=== PATIENT | male | born 2000 | race Caucasian/White ===

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

== ENCOUNTER 2018-12-29 17:52 | Emergency (ER) | payer OTHER, BC ==
[2018-12-29] MEDS ORDERED: HYDROmorphone 1 MG/ML Syringe IVPUSH ONE ×2 (17:58→19:30)
[2018-12-29] MEDS ORDERED: Metoclopramide 10 MG/2 ML SDV IVPUSH ONE (17:58)
[2018-12-29] MEDS ORDERED: Sodium Chloride 0.9% 10 ML Syringe FLUSH PRN (18:00)
[2018-12-29] MEDS ORDERED: Sodium Chloride 0.9% 1,000 ML IV SCH (18:00)
[2018-12-29] MEDS ORDERED: Iohexol 647 MG/ML 100 ML Bottle IVPUSH ONE (18:00)
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
--- NOTE | 2018-12-29 18:57 | CT ---
CT chest Technique: Multiple axial sections were obtained from above the lung apices inferiorly through the lung bases. Intravenous contrast was utilized. Comparison: No prior chest imaging. Findings: Soft tissue density is noted within the superior mediastinum which is felt compatible with residual thymic tissue as a normal finding. No mediastinal mass or adenopathy or mediastinal hematoma is seen. No pericardial fluid is seen. Aorta shows normal enhancement. Lungs are clear. No pulmonary contusion is seen. No pneumothorax is seen. No pleural effusions are noted. Minimal atelectasis is incidentally noted within both lung bases. No rib fracture is visualized. 2 mild compression fractures are seen within the vertebral bodies of T4 and T5 levels which will be described further on CT thoracic spine exam. Impression: 1. 2 mild compression fractures within T4 and T5 which will be described on thoracic spine study. 2. Other incidental findings. No other acute abnormality is seen on CT study of the chest. Diagnostic code #3 CT abdomen and pelvis Technique: Multiple axial sections were obtained from above the dome of the diaphragm inferiorly through the pubic symphysis. Intravenous contrast was utilized. No oral contrast has been given. Delayed images were obtained through the bladder. Findings: Liver shows no focal parenchymal abnormality. Spleen appears within normal limits. Adrenal glands show no nodule. Pancreas appears within normal limits. Gallbladder contains no calcified gallstones. Aorta shows no aneurysm. Kidneys show symmetric contrast enhancement. 2 cysts are noted within the right kidney. Largest cyst within the right kidney measures 1.9 cm and smaller cyst measures 1.0 cm. No retroperitoneal adenopathy or mesenteric abnormalities are seen. No pelvic mass or adenopathy is seen. Delayed images shows contrast within the distal ureters and within the bladder. No free fluid or inflammatory change is seen within the abdomen or pelvis. Bone window settings shows no discrete pelvic or hip fracture. Impression: 1. Incidental findings. Nothing acute is appreciated on CT study of the abdomen and pelvis. Diagnostic code #2
--- NOTE | 2018-12-29 19:04 | CT ---
CT cervical spine Technique: Multiple axial sections were obtained from above C1 inferiorly to the mid to bottom T2 level. Reconstructed sagittal and coronal images were reviewed. Findings: Mild subcutaneous soft tissue swelling noted within the posterior upper back. Vertebral body heights and disc spaces are maintained. Vertebral bodies and posterior arches are intact. No fracture is seen. No bony central or bony neural foraminal stenosis is seen. Craniovertebral junction structures are within normal limits. Impression: 1. Subcutaneous soft tissue swelling within the posterior upper back. 2. Nothing acute is otherwise appreciated on CT study of the cervical spine. Diagnostic code #2
--- NOTE | 2018-12-29 19:04 | CT ---
Head CT Technique: Multiple axial sections through the brain were obtained. Intravenous contrast was not utilized. Comparison: No prior intracranial imaging. Findings: Ventricles along with basal cisterns and sulci over the convexities are within normal limits for the patient's age. No abnormal parenchymal densities are seen. No evidence of intracranial hemorrhage. No midline shift or mass effect is seen. Bone window settings were reviewed which shows minimal areas of mucosal thickening within the ethmoid sinuses which is incidental. No acute calvarial abnormality is appreciated. Impression: 1. Nothing acute is seen on noncontrast head CT exam. Diagnostic code #1
--- NOTE | 2018-12-29 19:08 | CT ---
CT lumbar spine Technique: Multiple axial sections through the lumbar spine were obtained. Reconstructed coronal and sagittal images were obtained. Findings: Vertebral body heights and disc spaces are maintained. No traumatic disc herniation is seen. No fracture is identified within the lumbar spine. No abnormal subluxation is seen. No central canal stenosis or neural foraminal stenosis is seen. Impression: 1. Nothing acute is appreciated on CT study of the lumbar spine. Diagnostic code #1
--- NOTE | 2018-12-29 19:10 | CT ---
CT thoracic spine Technique: Multiple axial sections through the thoracic spine were obtained. Reconstructed coronal and sagittal images were obtained. Findings: Mild compression fracture is noted within T4. This involves mostly the superior vertebral margin. This appears to be acute. Posterior vertebral line appears intact. No fracture extension into the pedicles or posterior arch. Soft tissue swelling is noted within the paravertebral soft tissues. There is loss of height by about 25%. Compression fracture is also noted within the vertebral body of T5. Minimal loss of height about 10% is seen. Very minimal bowing of the posterior vertebral line is seen. No retrolisthesis fragments are noted. Fracture does not extend into the pedicles or posterior arch. Mild soft tissue swelling is seen within the paravertebral soft tissues. No additional fracture is seen within the thoracic spine. No abnormal subluxation is seen. No bony central or bony neural foraminal stenosis is seen. No abnormal subluxation is seen. Impression: 1. Mild compression deformities of T4 and T5 which appear acute. No fracture extension into the posterior arch or pedicles. Mild surrounding soft tissue swelling is seen within the paravertebral soft tissues. 2. No additional abnormality is seen on CT study of the thoracic spine. Diagnostic code #3
[2018-12-29] MEDS ORDERED: HYDROmorphone 0.5 MG/0.5 ML Syringe IVPUSH ONE (20:32)
[2018-12-29 21:16] VITALS: BP 104/39
== END 2018-12-29 21:14 | disposition home or self-care (01) ==
LOC: JD.ED 17:52
DX: S06.0X9A Concussion with loss of consciousness of unspecified duration, initial encounter (principal); S22.049A Unspecified fracture of fourth thoracic vertebra, initial encounter for closed fracture; S22.059A Unspecified fracture of T5-T6 vertebra, initial encounter for closed fracture; S30.0XXA Contusion of lower back and pelvis, initial encounter; S20.229A Contusion of unspecified back wall of thorax, initial encounter; Z91.030 Bee allergy status; Z79.899 Other long term (current) drug therapy; V86.06XA Driver of dirt bike or motor/cross bike injured in traffic accident, initial encounter
CPT/HCPCS: 36415; 70450; 71260; 72125; 72128; 72131; 74177; 80053; 82550; 85007; 85027; 85610; 85730; 86850; 86900; 86901; 93005; 96361; 96374; 96375; 96376; 99285; G0390; G0480; J1170; J2765; J7040; Q9967; 93010

== ENCOUNTER 2019-03-30 17:56 | Emergency (ER) | payer OTHER, BC ==
[2019-03-30 18:14] VITALS: BP 141/129; PULSE 70
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
[2019-03-30] MEDS ORDERED: Acetaminophen/oxyCODONE 325-5 MG Tab PO ONE (19:11)
[2019-03-30] MEDS ORDERED: Ondansetron 4 MG Tab.DIS PO ONE (19:11)
--- NOTE | 2019-03-31 09:22 | CR ---
Right wrist: Four views of the right wrist were obtained as well as a navicular view. Distal radial fracture is noted with articular extension. On the lateral view there is mild displacement of a posterior radial fragment by about 2.7 mm. Diffuse soft tissue swelling is noted. No additional bony abnormality is identified. Impression: 1. Distal radial fracture with articular extension. 2. Soft tissue swelling. Diagnostic code #3
--- NOTE | 2019-03-31 09:22 | CR ---
Left forearm: Two views of the left forearm were obtained. Comparison: No previous forearm study is available. No fracture, dislocation or other bony abnormality is seen. Impression: 1. No abnormality is appreciated on two-view left forearm study. Diagnostic code #1
--- NOTE | 2019-03-31 09:22 | CT ---
CT right wrist Technique: Multiple axial sections through the right wrist were obtained. Reconstructed coronal and sagittal images were obtained. Findings: Comminuted distal radial fracture is seen with articular involvement. Articular step-off is seen with impaction. This articular step-off measures about 6-7 mm. Posterior corner fracture is noted showing posterior displacement by about 2.7 mm. Distal ulna is intact. No additional fracture is seen. Soft tissue swelling is present. Impression: 1. Displaced distal radial fracture is seen with articular extension. 2. Soft tissue swelling. Diagnostic code #3 I agree with preliminary report from [facility], finalized on 03/30/19, 9:02 PM Central Time
--- NOTE | 2019-03-31 09:22 | CR ---
Left wrist: Four views of the left wrist were obtained. Comparison: No prior wrist exam. Joint spaces are preserved. No fracture, dislocation or other bony abnormality is seen. Impression: 1. No abnormality is identified on left wrist exam. Diagnostic code #1
--- NOTE | 2019-03-31 09:22 | CR ---
Right forearm: Two views of the right forearm were obtained. Comparison: No previous study. Displaced fracture identified off the corner posterior epiphysis. No additional forearm fracture is seen. Impression: 1. Distal radial fracture with posterior fragment showing displacement. 2. Right forearm study is otherwise unremarkable. Diagnostic code #3
== END 2019-03-30 20:13 | disposition home or self-care (01) ==
LOC: JD.ED 17:56
DX: S52.571A Other intraarticular fracture of lower end of right radius, initial encounter for closed fracture (principal); S63.502A Unspecified sprain of left wrist, initial encounter; S66.912A Strain of unspecified muscle, fascia and tendon at wrist and hand level, left hand, initial encounter; Z91.030 Bee allergy status; Z91.018 Allergy to other foods; Z79.899 Other long term (current) drug therapy; V86.56XA Driver of dirt bike or motor/cross bike injured in nontraffic accident, initial encounter
CPT/HCPCS: 73090; 73110; 73200; 99284; A9270; 99283

== ENCOUNTER 2019-04-03 10:04 | Day surgery (SDC) | payer OTHER, BC ==
[~2019-04-03 10:04] MED LIST: Lactated Ringers 1,000 ML IV SCH; Lidocaine 1%/Sod Bicarbonate in NS 8.4% 1 ML Syringe IDERM PRN; Sodium Chloride 0.9% 10 ML Syringe FLUSH PRN
[2019-04-03] MEDS ORDERED: Midazolam 1 MG/ML 2 ML SDV ONE ×2 (10:46→10:50)
[2019-04-03] MEDS ORDERED: fentaNYL 250 MCG/5 ML SDV ONE ×2 (10:46→10:51)
[2019-04-03] MEDS ORDERED: Propofol 200 MG/20 ML SDV ONE ×2 (10:47→10:50)
[2019-04-03] MEDS ORDERED: Ketorolac 30 MG/ML SDV ONE ×2 (10:50→10:54)
[2019-04-03] MEDS ORDERED: ceFAZolin 1 GM Vial ONE (10:50)
[2019-04-03] MEDS ORDERED: Lidocaine 1% 6 ML ONE (10:50)
[2019-04-03] MEDS ORDERED: Ondansetron 4 MG/2 ML SDV ONE ×2 (10:50→10:54)
[2019-04-03] MEDS ORDERED: Dexamethasone 4 MG/ML 5 ML MDV ONE (10:50)
[2019-04-03] MEDS ORDERED: Bupivacaine 0.25% 10 ML SDV ONE (11:27)
--- NOTE | 2019-04-03 11:40 | PCM.PREANE ---
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, genetic ) - Physical Assessment NPO Status Date: 04/02/19 NPO Status Time: 23:45 Vital Signs: Last Vital Signs Temp 37.3 C 04/03/19 10:20 Pulse 58 L 04/03/19 10:20 Resp 16 04/03/19 10:20 BP 135/90 04/03/19 10:20 Pulse Ox 100 04/03/19 10:20 Height: 1.98 m Weight: 75.296 kg ASA Class: 2 Mental Status: Alert & Oriented x3 Dentition: Reports: Normal Dentition Thyro-Mental Finger Breadths: 3 Mouth Opening Finger Breadths: 5 ROM/Head Extension: Full Lungs: Clear to Auscultation, Normal Respiratory Effort Cardiovascular: Regular Rate, Regular Rhythm - Allergies Allergies/Adverse Reactions: Allergies Allergy/AdvReac Type Severity Reaction Status Date / Time bee pollen Allergy Hives Verified 04/02/19 14:13 cat dander Allergy Hives Verified 04/02/19 14:13 mold Allergy Anaphylactic Verified 04/02/19 14:13 Shock tree nut Allergy Anaphylactic Verified 04/02/19 14:13 Shock - Blood Blood Available: No - Acknowledgements Anesthesia Type Planned: General Anesthesia Pt an Appropriate Candidate for the Planned Anesthesia: Yes Alternatives and Risks of Anesthesia Discussed w Pt/Guardian: Yes Pt/Guardian Understands and Agrees with Anesthesia Plan: Yes PreAnesthesia Questionnaire - Past Health History Medical/Surgical History: Denies Medical/Surgical History Cardiovascular History: Reports: Other (See Below) Other Cardiovascular History: pulmonary hypertension as Respiratory History: Reports: None Gastrointestinal History: Reports: None Genitourinary History: Reports: None 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 Musculoskeletal History: Reports: None Neurological History: Reports: None Psychiatric History: Reports: None Endocrine/Metabolic History: Reports: None Hematologic History: Reports: None Immunologic History: Reports: None Oncologic (Cancer) History: Reports: None Dermatologic History: Reports: None - Past Surgical History Head Surgeries/Procedures: Reports: None HEENT Surgical History: Reports: Oral Surgery Respiratory Surgical History: Reports: None GI Surgical History: Reports: None Female Surgical History: Reports: None Male Surgical History: Reports: None Endocrine Surgical History: Reports: None Neurological Surgical History: Reports: None Musculoskeletal Surgical History: Reports: None Oncologic Surgical History: Reports: None Dermatological Surgical History: Reports: None - SUBSTANCE USE Smoking Status *Q: Current Every Day Smoker Tobacco Use Within Last Twelve Months: Snuff/Dip, Vaping Days Per Week of Alcohol Use: 7 Number of Drinks Per Day: 2 Total Drinks Per Week: 14 Recreational Drug Use History: No - HOME MEDS Home Medications: Home Meds EPINEPHrine [Epipen 2-Gurjit] 0.3 mg IM DAILY PRN #2 unit 01/16/17 [Rx] Acetaminophen/oxyCODONE [Percocet 325-5 MG] 1 tab PO ASDIRECTED PRN 04/03/19 [ History] oxyCODONE HCl/Acetaminophen [Percocet 5-325 mg Tablet] 1 - 2 each PO Q6H PRN # 25 tablet 04/03/19 [Rx] - CURRENT (IN HOUSE) MEDS Current Meds: Current Medications Lactated Ringer's (Ringers, Lactated) 1,000 mls @ 125 mls/hr IV ASDIRECTED GAUTAM Stop: 04/03/19 23:00 Last Admin: 04/03/19 10:45 Dose: 125 mls/hr Lidocaine/Sodium Bicarbonate (Buffered Lidocaine 1% In Ns 8.4%) 0.25 ml IDERM ONETIME PRN PRN Reason: Prior to IV Start Stop: 04/03/19 18:00 Last Admin: 04/03/19 10:45 Dose: 0.25 ml Sodium Chloride (Saline Flush) 10 ml FLUSH ASDIRECTED PRN PRN Reason: Keep Vein Open Stop: 04/03/19 18:00 Discontinued Medications Bupivacaine HCl (Sensorcaine-Mpf 0.25%) Confirm Administered Dose 30 ml .ROUTE .STK-MED ONE Stop: 04/03/19 11:28 Cefazolin Sodium (Ancef) Confirm Administered Dose 2 gm .ROUTE .STK-MED ONE Stop: 04/03/19 10:51 Dexamethasone (Dexamethasone) Confirm Administered Dose 20 mg .ROUTE .STK-MED ONE Stop: 04/03/19 10:51 Fentanyl (Sublimaze) Confirm Administered Dose 250 mcg .ROUTE .STK-MED ONE Stop: 04/03/19 10:47 Fentanyl (Sublimaze) Confirm Administered Dose 250 mcg .ROUTE .STK-MED ONE Stop: 04/03/19 10:52 Lidocaine HCl (Xylocaine-Mpf 1%) Confirm Administered Dose 6 mls @ as directed .ROUTE .ST-MED ONE Stop: 04/03/19 10:51 Ketorolac Tromethamine (Toradol) Confirm Administered Dose 30 mg .ROUTE .STK- MED ONE Stop: 04/03/19 10:51 Ketorolac Tromethamine (Toradol) Confirm Administered Dose 30 mg .ROUTE .ST- MED ONE Stop: 04/03/19 10:55 Midazolam HCl (Versed 1 Mg/Ml) Confirm Administered Dose 2 mg .ROUTE .STK-MED ONE Stop: 04/03/19 10:47 Midazolam HCl (Versed 1 Mg/Ml) Confirm Administered Dose 2 mg .ROUTE .ST-MED ONE Stop: 04/03/19 10:51 Ondansetron HCl (Zofran) Confirm Administered Dose 4 mg .ROUTE .STK-MED ONE Stop: 04/03/19 10:51 Ondansetron HCl (Zofran) Confirm Administered Dose 4 mg .ROUTE .ST-MED ONE Stop: 04/03/19 10:55 Propofol (Diprivan 20 Ml) Confirm Administered Dose 200 mg .ROUTE .STK-MED ONE Stop: 04/03/19 10:48 Propofol (Diprivan 20 Ml) Confirm Administered Dose 200 mg .ROUTE .STK-MED ONE Stop: 04/03/19 10:51
[2019-04-03] MEDS ORDERED: Lidocaine 1% 4 ML ONE (12:00)
[2019-04-03] MEDS ORDERED: Ketamine 500 mg/10 ML MDV ONE (12:23)
[2019-04-03] MEDS ORDERED: Lactated Ringers 1,000 ML ONE (12:45)
[2019-04-03] MEDS ORDERED: Ondansetron 4 MG/2 ML SDV IVPUSH PRN (14:01)
[2019-04-03] MEDS ORDERED: diphenhydrAMINE 50 MG/ML SDV IVPUSH PRN (14:01)
--- NOTE | 2019-04-03 14:01 | PCM.POSTAN ---
POST ANESTHESIA ASSESSMENT - MENTAL STATUS Mental Status: Alert - VITAL SIGNS Vital Signs: Last Vital Signs 1349 148/94, 83, 12 rr, 98.4, 83 Temp 37.3 C 04/03/19 10:20 Pulse 58 L 04/03/19 10:20 Resp 16 04/03/19 10:20 BP 135/90 04/03/19 10:20 Pulse Ox 100 04/03/19 10:20 - RESPIRATORY Respiratory Status: Respiratory Rate WNL, Airway Patent, O2 Saturation Stable - CARDIOVASCULAR CV Status: Pulse Rate WNL, Blood Pressure Stable - GASTROINTESTINAL GI Status: No Symptoms - POST OP HYDRATION Hydration Status: Adequate & Stable
[2019-04-03] MEDS ORDERED: fentaNYL 100 MCG/2 ML SDV ONE (14:02)
[2019-04-03] MEDS ORDERED: HYDROmorphone 0.5 MG/0.5 ML Syringe IVPUSH ONE (14:02)
[2019-04-03] MEDS: fentaNYL 100 MCG/2 ML SDV IVPUSH PRN ×2 (14:05→14:15)
[2019-04-03] MEDS ORDERED: Acetaminophen/oxyCODONE 325-5 MG Tab PO PRN (14:19)
[2019-04-03 15:44] VITALS: BP 137/81; PULSE 60
--- NOTE | 2019-04-07 06:39 | CR ---
Right wrist: Ten fluoroscopic spot views were obtained of the right wrist. Comparison: Previous CT right wrist exam of 03/30/19. Findings: Study shows reduction and fixation of previous distal radial epiphyseal fracture. Plate and screws are in place on final film. Fluoroscopy time is given as 30.0 seconds. Impression: 1. Procedural study showing reduction and fixation of previous distal radial fracture. Diagnostic code #2 I agree with preliminary report from [facility], finalized on 04/03/19, 2:41 PM Central Time
--- NOTE | 2019-04-08 09:06 | PCM.OPNOTE ---
- General Post-Op/Procedure Note Date of Surgery/Procedure: 04/03/19 Operative Procedure(s): open reduction internal fixation of intraarticular right distal radius fracture Pre Op Diagnosis: intraarticular right distal radius fracture 3 or more fragments Post-Op Diagnosis: Same Anesthesia Technique: General LMA, Local Primary Surgeon: Solomon Oviedo Anesthesia Provider: She Blackburn Cupola Hoist Operator: Kristy Villagomez EBL in mLs: 5 Complications: None Condition: Good
--- NOTE | 2019-04-08 09:59 | OR ---
DATE OF OPERATION: 04/03/2019 SURGEON: Solomon Oviedo MD OPERATION PERFORMED: Open reduction, internal fixation, intra-articular right distal radius fracture. PREOPERATIVE DIAGNOSIS: Intra-articular right distal radius fracture, 3 or more fragments. POSTOPERATIVE DIAGNOSIS: Intra-articular right distal radius fracture, 3 or more fragments. ANESTHESIA: General LMA with local. ANESTHESIA PROVIDER: She Blackburn. ARBITRATOR: Kristy Villagomez PA-C. ESTIMATED BLOOD LOSS: 5 mL. COMPLICATIONS: None. CONDITION: Stable. DESCRIPTION OF PROCEDURE: The patient was identified in the preoperative holding area. Proper site was marked and identified by the surgeon. The patient was taken back to the operating theater, where after adequate anesthesia, the patient's right upper extremity had a nonsterile tourniquet applied and then was sterilely prepped and draped in the usual sterile fashion. OR time-out was performed. The patient received 2 g IV Ancef. The right upper extremity was exsanguinated. Tourniquet was insufflated to 225 mmHg. A standard dorsal incision just to the ulnar side of Dana's tubercle was taken down to the extensor pollicis longus tendon. The tendon sheath was opened. The tendon was then retracted and the floor of the tendon sheath was opened. Subperiosteally, the 4th compartment was elevated and then radially the compartments were elevated as well. This was taken down and a capsulotomy was performed. Adequate saline was irrigated through the joint line secondary to the hematoma. There was also significant hematoma noted in the 3rd dorsal compartment as well when it was opened. After adequate saline was rinsed through it, the patient was noted to have complete compression of the scaphoid fossa of the distal radius as well as a dorsal rim fracture. A [place] elevator was used to bring the impacted fragment out to length. The radial styloid fragment had longitudinal traction and K-wire applied to place it in proper position under C-arm fluoroscopy. Once there was adequate tenriism of the joint line, a K-wire was placed through the scaphoid fossa fragment and then the dorsal rim fragment was also held in place. A Damien dorsal locking distal radius plate was then placed under direct C-arm fluoroscopy and was found to be in adequate position on both AP and lateral views and there was anatomic reduction in the AP, lateral and 23 degree lateral views of the right distal radius. A nonlocking screw was placed in the shaft and then 4 locking screws were placed distally. At this time, the dorsal rim fragment was so small that the plate and screws would not hold it, so I did place a lag screw via lag by technique for a 2-0 Damien screw fully cannulated and it had good compression of the dorsal rim fragment with anatomic reduction and good stability. At this time, 2 more locking screws were placed in the 2nd row locking screws near the articular surface and then 2 more nonlocking screws were placed up in the shaft. It was found to have adequate reduction and good placement of the screws on both AP, lateral, and 23 degree lateral views. Adequate saline was irrigated through the wound. 2-0 Vicryl was used for closure of the capsule as well as tendon sheath underneath over the top of the plate. The tendon sheath was closed distally and proximally with just leaving a little bit of the extensor pollicis longus tendon exposed near Dana's tubercle. There was no instability to the tendons. 3-0 Vicryl was used subcutaneously, Monocryl was used for the skin. The patient had a sterile soft dressing applied and was placed in a volar slab splint and sent to PACU in stable condition. MARION /[id number]
== END 2019-04-03 15:18 | disposition home or self-care (01) ==
LOC: JD.SDS 10:04
PROVIDERS: ATTEND Orthopaedic Surgery
DX: S52.571A Other intraarticular fracture of lower end of right radius, initial encounter for closed fracture (principal); I10 Essential (primary) hypertension; I27.20 Pulmonary hypertension, unspecified; F17.290 Nicotine dependence, other tobacco product, uncomplicated; F17.220 Nicotine dependence, chewing tobacco, uncomplicated; V86.56XA Driver of dirt bike or motor/cross bike injured in nontraffic accident, initial encounter; Z91.018 Allergy to other foods; Z91.030 Bee allergy status; Z91.09 Other allergy status, other than to drugs and biological substances
CPT/HCPCS: 25609; 76000; A9270; C1713; C1776; J0690; J1100; J1170; J1885; J2001; J2250; J2405; J2704; J3010; J3490; J7120; 01830; 87641

== ENCOUNTER 2023-10-16 10:26 | Emergency (ER) | payer BC, OTHER ==
[2023-10-16 10:48] VITALS: PULSE 70
[2023-10-16 11:19] LABS: BASOPHILS PERCENT AUTO 0.4 % (0.0-1.0); EOSINOPHILS ABSOLUTE AUTO 0.2 K/mm3 (0.0-0.4); EOSINOPHILS PERCENT AUTO 1.9 % (0.0-6.0); HEMATOCRIT 45.6 % (42.0-52.0); HEMOGLOBIN 15.9 gm/dl (14.0-18.0); IMMATURE GRAN ABSOLUTE AUTO 0.03 K/mm3 (0.00-0.05); IMMATURE GRAN PERCENT AUTO 0.4 % (0.0-0.4); LYMPHOCYTES ABSOLUTE AUTO 1.3 K/mm3 (1.0-4.8); LYMPHOCYTES PERCENT AUTO 15.7 % (24.0-44.0); MEAN CORPUSCULAR HEMOGLOBIN 30.1 pg (28.0-32.0); MEAN CORPUSCULAR HGB CONC 34.9 g/dl (32.0-36.0); MEAN CORPUSCULAR VOLUME 86.4 fl (83.0-99.0); MEAN PLATELET VOLUME 10.5 fl (9.4-12.4); MONOCYTES ABSOLUTE AUTO 0.7 K/mm3 (0.0-0.8); MONOCYTES PERCENT AUTO 8.3 % (0.0-8.0); NEUTROPHILS ABSOLUTE AUTO 6.2 K/mm3 (1.8-7.7); NEUTROPHILS PERCENT AUTO 73.3 % (41.0-71.0); PLATELET COUNT,PLT 193 K/mm3 (150-400); RED BLOOD CELL COUNT 5.28 M/mm3 (4.52-5.90); WHITE BLOOD CELL COUNT,WBC 8.43 K/mm3 (3.9-11.3)
[2023-10-16] MEDS: Sodium Chloride 0.9% 10 ML Syringe FLUSH PRN (11:19)
[2023-10-16 11:33] LABS: A/G RATIO 1.2 (1-2); ALANINE AMINOTRANSFERASE,ALT 28 U/L (16-63); ALBUMIN 4.4 g/dl (3.4-5.0); ALKALINE PHOSPHATASE 74 U/L (46-116); ANION GAP 14.1 (5-15); ASPARTATE AMNIOTRANSFERASE,AST 18 U/L (15-37); BILIRUBIN TOTAL 0.6 mg/dL (0.2-1.0); BLOOD UREA NITROGEN,BUN 19 mg/dL (7-18); BUN/CREATININE RATIO 17.3 (14-18); CALCIUM 9.2 mg/dL (8.5-10.1); CARBON DIOXIDE,CO2 28 mEq/L (21-32); CHLORIDE,CL 101 mEq/L (98-107); CREATININE 1.1 mg/dL (0.7-1.3); EST CRCL DRUG DOSING (CG) 129.38 mL/min; ESTIMATED GFR 96 mL/min (>60); GLUCOSE RANDOM 101 mg/dL (70-99); POTASSIUM,K 4.1 mEq/L (3.5-5.1); PROTEIN TOTAL,TP 8.1 g/dl (6.4-8.2); SODIUM,NA 139 mEq/L (136-145)
[2023-10-16 11:37] LABS: TROPONIN I HIGH SENSITIVITY < 4 pg/mL (<=76)
[2023-10-16 13:03] VITALS: BP 125/69
== END 2023-10-16 13:07 | disposition home or self-care (01) ==
LOC: JD.ED 10:26
DX: R07.89 Other chest pain (principal); I10 Essential (primary) hypertension; F17.210 Nicotine dependence, cigarettes, uncomplicated; Z86.16 Personal history of COVID-19; Z91.030 Bee allergy status; Z91.048 Other nonmedicinal substance allergy status; Z91.018 Allergy to other foods
CPT/HCPCS: 36415; 71045; 80053; 84484; 85025; 85379; 93005; 99285; J3490; 93010; 99284

== ENCOUNTER 2024-04-16 19:16 | Emergency (ER) | payer BC ==
[2024-04-16 19:22] VITALS: BP 145/75; PULSE 61
== END 2024-04-16 21:14 | disposition home or self-care (01) ==
LOC: JD.ED 19:16
DX: I95.1 Orthostatic hypotension (principal); T46.5X5A Adverse effect of other antihypertensive drugs, initial encounter; I10 Essential (primary) hypertension; Z86.16 Personal history of COVID-19; Z79.899 Other long term (current) drug therapy; Z91.030 Bee allergy status; Z91.09 Other allergy status, other than to drugs and biological substances; Z91.018 Allergy to other foods
CPT/HCPCS: 93005; 99284